=== PATIENT | female | born 1955 | race Caucasian/White ===

== ENCOUNTER → 2017-02-23 | Outpatient (REF) | payer BC ==
[~2017-02-23] MED LIST: ADV250INH INH; PROAAER10 INH; SPIR1CAP INH
== END ==
LOC: M LAB REF 12:43
PROVIDERS: ATTEND Internal Medicine Pulmonary Disease
DX: J45.41 Moderate persistent asthma with (acute) exacerbation (principal)

== ENCOUNTER → 2018-02-28 | Outpatient (REF) | payer BC | LOC: M LAB REF 17:35 | DX: R05 Cough (principal); J45.41 Moderate persistent asthma with (acute) exacerbation | CPT/HCPCS: 87205 ==

== ENCOUNTER 2018-03-01 11:23 | Emergency (ER) | payer BC ==
[2018-03-01] MEDS: IPRATROPIUM 0.5MG/ALBUTEROL 2.5MG INH SOL UD 3ML (DUONEB)(J7620) NEB ×3 (14:50→16:07)
[2018-03-01] MEDS: cefTRIAXone SOD 1 GM VIAL (J0696) IM (17:12)
== END 2018-03-01 17:35 | disposition home or self-care (01) ==
LOC: M ED 11:23
DX: J44.9 Chronic obstructive pulmonary disease, unspecified (principal); J06.9 Acute upper respiratory infection, unspecified; J45.909 Unspecified asthma, uncomplicated; Z72.0 Tobacco use; Z79.899 Other long term (current) drug therapy
CPT/HCPCS: J0696

== ENCOUNTER → 2019-01-18 | Outpatient (CLI) | payer BC ==
[~2019-01-18] MED LIST changes: +ISOVUE-370 76% 100ML VIAL (Q9967) As Ordered ONE; +PRED10PA2 PO; +TREL1AER INH; +ZITHTAB PO
--- NOTE | 2019-01-18 14:54 | REP ---
CT chest with IV contrast: History: COPD. Comparison chest x-ray is from March 01, 2018. Comparison CT studies are also reviewed from September 14, 2018 and January 30, 2018. CT contrast dose: 75 ml of intravenous Isovue 370. CT findings: The two new right upper lobe nodules identified on September 14, 2018 are no longer visible. Nodular density noted previously in the lingular segment left upper lobe is less conspicuous and may be a focally dilated bronchioles. There is some endobronchial retained secretions in the the left upper lobe elsewhere. There is a new 5-6 mm nodule in the right lower lobe just posterior inferior to the right hilus. This has ill-defined margins. No other new pulmonary nodule is appreciated. No new infiltrate is seen. There are scattered areas of subpleural fibrosis. No pleural effusion is seen. No mediastinal adenopathy is seen. There is a right hilar lymph node which measures 12 mm in short axis dimension. This area is difficult to evaluate on the previous low-dose lung cancer screening CT images. No adrenal lesion is seen. The visualized upper abdominal structures are unremarkable. Impression: The two recently identified new right upper lobe lung lesions have resolved. There is an area of mucous plugging in the left upper lobe. There is a new ill-defined 6 mm nodule in the right lower lobe posterior and inferior to the right hilus. There is a calcified granuloma in the right upper lobe again noted. Question granulomatous or other inflammatory lung disease. Continued followup is advised. Electronically Signed by Bobo Castillo MD 01/18/2019 02:46 P
== END ==
LOC: M RAD 12:43
PROVIDERS: ATTEND Internal Medicine Pulmonary Disease
DX: J44.9 Chronic obstructive pulmonary disease, unspecified (principal); R91.8 Other nonspecific abnormal finding of lung field; R91.1 Solitary pulmonary nodule
CPT/HCPCS: 71260; Q9967

== ENCOUNTER → 2019-11-02 | Outpatient (CLI) | payer BC ==
[~2019-11-02] MED LIST changes: -ISOVUE-370 76% 100ML VIAL (Q9967) As Ordered ONE; +ISOVUE-370 76% 100ML VIAL As Ordered ONE
--- NOTE | 2019-11-02 10:57 | REP ---
CT CHEST WITH IV CONTRAST: HISTORY: Moderate persistent asthma. Comparison chest CT studies are from January 18, 2019 and January 30, 2018. CT CONTRAST DOSE: 75 mL of intravenous Isovue 370. FINDINGS: There is good opacification of the pulmonary arterial tree, and there is no CT evidence of pulmonary embolus. The thoracic aorta enhances homogeneously and is normal in caliber and contour. There is no evidence of aneurysm or dissection. The ascending aorta measures 3.5 cm in AP dimension at the level of the right main pulmonary artery. No mediastinal mass or adenopathy is observed. There is a granulomatous calcification in the right lung in the right middle lobe. No lung mass or focal infiltrate is seen. There are scattered areas of peribronchovascular tree-in-bud type changes and inspissated endobronchial secretions. There is a noncalcified 5 mm peribronchovascular nodule in the superior segment of the left lower lobe. This is visible on page 42 of 116 in series 201 of today's study. It is not visible on January 18, 2019 prior study. The nodules noted on the January 18, 2019 and January 30, 2018 prior study have resolved. No other significant solid pulmonary nodule is seen. No endobronchial lesion is seen centrally. No bony destructive lesion is observed. There is a small accessory splenule. Normal adrenal glands are seen. The visualized upper abdominal structures are otherwise unremarkable. IMPRESSION: There are scattered mild upper and lower lobe bronchiectasis changes with areas of tree-in-bud type of inflammatory change and inspissated endobronchial secretions. There is a 5 mm noncalcified nodule in the superior segment of the left lower lobe. A granulomatous calcification is noted in the right middle lobe. Electronically Signed by Bobo Castillo MD 11/02/2019 11:03 A
== END ==
LOC: M RAD 08:41
PROVIDERS: ATTEND Internal Medicine Pulmonary Disease
DX: J45.40 Moderate persistent asthma, uncomplicated (principal); J47.9 Bronchiectasis, uncomplicated; R91.1 Solitary pulmonary nodule; J84.10 Pulmonary fibrosis, unspecified
CPT/HCPCS: 71260; Q9967

== ENCOUNTER → 2020-10-16 | Outpatient (CLI) | payer BC ==
[~2020-10-16] MED LIST changes: -ISOVUE-370 76% 100ML VIAL As Ordered ONE
--- NOTE | 2020-10-16 16:20 | REPMRS ---
Patient History The patient states she has not had a clinical breast exam in over a year. Family history of breast cancer at age 60 in mother. Patient states no breast complaints today. Patient has signed MRS History Sheet. Digital Woman Screen Mammo: October 16, 2020 - Exam #: [id number] Bilateral CC and MLO view(s) were taken. Technologist: RT Neelima Prior study comparison: March 18, 2016, bilateral digital mammo screening bilat, performed at [facility]. March 07, 2015, bilateral digital mammo screening bilat, performed at [facility]. FINDINGS: The breast tissue is heterogeneously dense. This may lower the sensitivity of mammography. Screening. Digital screening (2D) mammography was performed bilaterally in the CC and MLO projections. Additionally, breast tomosynthesis (3D mammography) was performed bilaterally in the CC and MLO projections. Todays exam was compared to the prior exam/exams. By history, the patient has no complaints of a palpable breast abnormality or other significant breast complaints. The breasts are unchanged in size and shape. Once again, dense heterogenous fibroglandular elements are seen bilaterally in a stable appearing pattern but to such a degree that the sensitivity of the mammogram in detecting cancer is decreased.There are no suma-soft tissue densities or spiculated masses. There is no internal architectural distortion. There are no suspicious suma-calcific clusters. Skin thickening or nipple retraction is not present. IMPRESSION: BI-RADS Category 2- Benign Findings. There is no evidence of malignant alteration of the breasts. Followup examination recommended in one year. The Volpara volumetric breast density category is C, the breasts are heterogenously dense which may obscure small masses. This mammogram was read with the assistance of [email or web address],an FDA approved computer aided detection system for mammography. The lifetime Tyrer-Cuzick score is 17.2 % Due to the density of the breasts or Tyrer Cuzick score of 20% or greater, MRI/whole breast screening ultrasound is warranted. Negative x-ray reports should not delay surgical consultation if a dominant or clinically suspicious mass is present. Not all breast cancers can be identified by mammography. Therefore, we recommend that you continue to perform regular breast self-examination and physical examination and then promptly contact your physician of any concerns or changes. Adenosis and dense breasts may obscure an underlying neoplasm. Assessment: BI-RADS/ACR category 2 mammogram. Benign Findings. Recommendation Routine screening mammogram of both breasts in 1 year. Electronically Signed By: Teofilo Sandoval DO 10/16/20 [id number]
== END ==
LOC: M WHC 15:13
PROVIDERS: ATTEND Internal Medicine
DX: Z12.31 Encounter for screening mammogram for malignant neoplasm of breast (principal); Z80.3 Family history of malignant neoplasm of breast

== ENCOUNTER → 2020-11-12 | Outpatient (CLI) | payer MEDICARE, BC ==
--- NOTE | 2020-11-12 10:04 | REP ---
INDICATION: COPD COMPARISON: 11/02/2019 TECHNIQUE: Axial noncontrast images from the thoracic inlet to the upper abdomen using low-dose lung screening technique (LDCT). FINDINGS: Mild chronic COPD/emphysematous changes along with few scattered calcified nodules and stable 5 mm noncalcified nodule in the apical left lower lobe remain essentially unchanged. There is a new 8 mm nodule in the basilar right upper lobe (series 201; image 55). No consolidation. No effusion. No pneumothorax. Tracheobronchial tree is patent. Surrounding musculoskeletal structures are grossly normal. IMPRESSION: Lung-RADS category 4A. New 8 mm noncalcified nodule in the basilar right upper. Management recommendations include 3 month low-dose CT follow-up and/or PET-CT for further investigation. <Electronically signed by Ricardo Powell > 11/12/20 1000
== END ==
LOC: M RAD 08:33
PROVIDERS: ATTEND Internal Medicine Pulmonary Disease
DX: Z12.2 Encounter for screening for malignant neoplasm of respiratory organs (principal); J44.9 Chronic obstructive pulmonary disease, unspecified; F17.210 Nicotine dependence, cigarettes, uncomplicated; R91.8 Other nonspecific abnormal finding of lung field

== ENCOUNTER → 2020-12-05 | Outpatient (CLI) | payer MEDICARE, BC ==
--- NOTE | 2020-12-05 10:14 | DEXAMM ---
INDICATION: OSTEOPOROSIS. COMPARISON: None. TECHNIQUE: Bone density was measured using dual-energy x-ray absorptionmetry (DEXA). FINDINGS: AP SPINE L1-L4 BMD 1.045 g/cm2 Young Adult T-Score -1.2 Age Matched Z-Score 0.4. LT FEMUR, TOTAL BMD 0.707 g/cm2 Young Adult T-Score -2.4 Age Matched Z-Score -1.2. LT NECK BMD 0.708 g/cm2 Young Adult T-Score -2.4 Age Matched Z-Score -0.9. RT FEMUR, TOTAL BMD 0.692 g/cm2 Young Adult T-Score -2.5 Age Matched Z-Score -1.3. RT NECK BMD 0.712 g/cm2 Young Adult T-Score -2.3 Age Matched Z-Score -0.9. IMPRESSION: There is low bone density of the spine. There is low bone density of the left hip. There is low bone density of the right hip. FOLLOW-UP: Recommendation for the next bone density exam: 2 years. <Electronically signed by Wyatt Castillo > 12/05/20 101
== END ==
LOC: M WHC 08:55
PROVIDERS: ATTEND Internal Medicine
DX: M81.0 Age-related osteoporosis without current pathological fracture (principal)

== ENCOUNTER → 2021-11-24 | Outpatient (CLI) | payer MEDICARE, BC | LOC: M WHC 12:18 | PROVIDERS: ATTEND Internal Medicine | DX: Z12.31 Encounter for screening mammogram for malignant neoplasm of breast (principal); R92.2 Inconclusive mammogram ==

== ENCOUNTER → 2022-01-22 | Outpatient (CLI) | payer MEDICARE, BC | LOC: M PLAIMG 12:15 | PROVIDERS: ATTEND Internal Medicine Pulmonary Disease | DX: R91.8 Other nonspecific abnormal finding of lung field (principal); J44.9 Chronic obstructive pulmonary disease, unspecified; K76.9 Liver disease, unspecified ==

== ENCOUNTER → 2022-02-16 | Outpatient (CLI) | payer MEDICARE, BC ==
[~2022-02-16] MED LIST changes: +PROHANCE 279.3MG/ML 15ML VIAL ONE
== END ==
LOC: M PLAIMG 14:20
PROVIDERS: ATTEND Internal Medicine
DX: D37.6 Neoplasm of uncertain behavior of liver, gallbladder and bile ducts (principal); Q61.02 Congenital multiple renal cysts
CPT/HCPCS: 74183; A9576

== ENCOUNTER → 2022-02-18 | Outpatient (REF) | payer MEDICARE, BC ==
[~2022-02-18] MED LIST changes: -PROHANCE 279.3MG/ML 15ML VIAL ONE
[2022-02-18 17:27] LABS: INR 0.96
[2022-02-18 17:28] LABS: PARTIAL THROMBOPLASTIN TIME 30.9 SECONDS (24.8-34.2)
[2022-02-18 18:54] LABS: CA19-9 TUMOR MARKER,CARBOHYDRA 31.3 U/ML (<35.0); HEPATITIS B CORE ANTIBODY IGM NEGATIVE (NEGATIVE); HEPATITIS B SURFACE ANTIGEN NEGATIVE (NEGATIVE); HEPATITIS C VIRUS ABY INDEX < 0.0 INDEX (<0.8)
== END ==
LOC: M LAB REF 16:30
PROVIDERS: ATTEND Internal Medicine
DX: R94.5 Abnormal results of liver function studies (principal); Z80.3 Family history of malignant neoplasm of breast; Z85.828 Personal history of other malignant neoplasm of skin; Z79.899 Other long term (current) drug therapy

== ENCOUNTER → 2022-12-24 | Outpatient (CLI) | payer MEDICARE, BC | LOC: M WHC 09:47 | PROVIDERS: ATTEND Internal Medicine | DX: Z12.31 Encounter for screening mammogram for malignant neoplasm of breast (principal); M89.9 Disorder of bone, unspecified; C22.1 Intrahepatic bile duct carcinoma; M85.851 Other specified disorders of bone density and structure, right thigh; M81.0 Age-related osteoporosis without current pathological fracture ==

== ENCOUNTER → 2022-12-24 | Outpatient (CLI) | payer MEDICARE, BC ==
[2022-12-24 15:09] LABS: HEMATOCRIT 40.8 % (36.0-47.0); HEMOGLOBIN 13.4 g/dl (12.0-15.5); MEAN CORPUSCULAR HEMOGLOBIN 33.9 pg (27.0-33.0); MEAN CORPUSCULAR HGB CONC 32.8 g/dl (32.0-36.5); MEAN CORPUSCULAR VOLUME 103.3 fl (80.0-96.0); PLATELET COUNT, AUTOMATED 159 10^3/uL (150-450); RED BLOOD COUNT 3.95 10^6/uL (4.00-5.40)
[2022-12-24 15:37] LABS: ALBUMIN 3.8 G/DL (3.2-5.2); ALKALINE PHOSPHATASE 91 U/L (46-116); ALT/SGPT 22 U/L (7.0-40); AST/SGOT 9 U/L (<34); BILIRUBIN,TOTAL 0.5 MG/DL (0.3-1.2); BLOOD UREA NITROGEN 13 MG/DL (9-23); CALCIUM LEVEL 8.6 MG/DL (8.3-10.6); CARBON DIOXIDE LEVEL 30 MMOL/L (20-31); CHLORIDE LEVEL 105 MMOL/L (98-107); CREATININE FOR GFR 0.73 MG/DL (0.55-1.30); GLOMERULAR FILTRATION RATE > 60.0 (>45); GLUCOSE, FASTING 101 MG/DL (74-106); POTASSIUM SERUM 3.9 MMOL/L (3.5-5.1); SODIUM LEVEL 140 MMOL/L (136-145); TOTAL PROTEIN 6.8 G/DL (5.7-8.2)
== END ==
LOC: M PLALAB 10:40
DX: C22.1 Intrahepatic bile duct carcinoma (principal)

== ENCOUNTER → 2024-09-18 | Outpatient (CLI) | payer MEDICARE, BC ==
[~2024-09-18] MED LIST changes: -ADV250INH INH; +ADVA1AER9 INH
== END ==
LOC: M WHC 13:33
PROVIDERS: ATTEND Internal Medicine
DX: Z12.31 Encounter for screening mammogram for malignant neoplasm of breast (principal)

== ENCOUNTER → 2024-09-25 | Outpatient (CLI) | payer MEDICARE, BC | LOC: M WHC 10:00 | PROVIDERS: ATTEND Internal Medicine | DX: R92.8 Other abnormal and inconclusive findings on diagnostic imaging of breast (principal) | CPT/HCPCS: 77065; G0279 ==